=== PATIENT | male | born 1950 | race Caucasian/White ===

== ENCOUNTER 2020-09-23 10:11 | Outpatient (CLI) | payer OTHER ==
--- NOTE | 2020-09-23 11:44 | CT ---
CT chest noncontrast low-dose screening. Tobacco abuse. 50 year smoking history. FINDINGS: Lungs are slightly hyperinflated with scattered areas of mild emphysematous bullae. A 0.4 c m solid subpleural nodule is noted at the lateral aspect of the right lung apex. Subtle areas of linear scarring are most pronounced at the posterolateral aspect of the right apex and the anterior a spect of the lingula left upper lobe. No pleural fluid or pneumothorax. There is calcification in the coronary arteries and other arterial structures. Lack of contrast limits evaluation of the soft tissues. No mediastinal adenopathy is apparent. Tiny n onspecific low-density lesions within the liver are unchanged from the 2017 CT abdomen exam and consistent with cysts. Small focus of dystrophic calcification immediately anterior to the upper IVC is stable. IMPRESSION : Lung RADS category 2. Benign findings. Suggest continued routine screening. Mild emphysematous changes. Atherosclerosis.
== END 2020-09-23 10:12 | disposition home or self-care (01) ==
LOC: BICCT 10:11
PROVIDERS: ATTEND Family Medicine
DX: Z12.2 Encounter for screening for malignant neoplasm of respiratory organs (principal); F17.210 Nicotine dependence, cigarettes, uncomplicated; I25.10 Atherosclerotic heart disease of native coronary artery without angina pectoris; J43.9 Emphysema, unspecified
CPT/HCPCS: G0297